=== PATIENT | female | born 1955 | race Caucasian/White ===

== ENCOUNTER → 2017-08-02 | Day surgery (SDC) | payer OTHER ==
[~2017-08-02] VITALS: Ht 152.4 cm; Wt 56.9 kg
[~2017-08-02] MED LIST: ATROPINE SULFATE 1% OPHT SOLN 2 ML BTL ONE; BALANCED SALT SOLN OPHT IRRIG 15 ML BTL ONE; CHLORHEXIDINE GLUCONATE 2 % 1 PACK (2 CLOTHS) TOPICAL PRN; DEXAMETHASONE SOD PHOS 4 MG/ML VIAL ONE; DO NOT ADM ANY ANTICOAGULANT DRUGS PRN; EPINEPHrine HCL (1:1000) 1 MG/ML VIAL ONE; LACTATED RINGER'S 1000 ML IV PRN; LIPI10TA PO; METOPROLOL TARTRATE 25 MG TAB PO PRN; POVIDONE IODINE 5% (ANTISEPSIS KIT) 4 APPLICATIONS EACH NARE PRN; SODIUM CHLORID 0.9% 500 ML IV PRN; TOBRAMYCIN/DEXAMETHASONE OPTH OINT 3.5 GM TUBE ONE; ceFAZolin INJ 1,000 MG VIAL ONE
[2017-08-02] MEDS: CYCLOPENTOLATE HCL 1% OPHT SOLN 2 ML BTL RIGHT EYE SCH ×4 (12:45→13:28)
[2017-08-02] MEDS: ATROPINE SULFATE 1% OPHT SOLN 5 ML BTL RIGHT EYE SCH ×4 (12:45→13:29)
[2017-08-02] MEDS: PHENYLEPHRINE HCL 2.5% OPTH SOLN 2 ML BTL RIGHT EYE SCH ×4 (12:45→13:30)
[2017-08-02] MEDS: TROPICAMIDE 1% OPHT SOLN 15 ML BTL RIGHT EYE SCH ×4 (12:45→13:31)
[2017-08-02 12:50] LABS: AUTOMATED NEUTROPHIL # 3.3 TH/MM3 (1.8-7.7); BASOPHIL # 0.1 TH/MM3 (0-0.2); BASOPHIL % 1.1 % (0.0-2.0); EOSINOPHIL # 0.3 TH/MM3 (0-0.4); EOSINOPHIL % 5.5 % (0.0-4.0); HEMATOCRIT 36.2 % (35.0-46.0); HEMOGLOBIN 12.7 GM/DL (11.6-15.3); LYMPH % 29.3 % (9.0-44.0); LYMPHOCYTE # 1.7 TH/MM3 (1.0-4.8); MEAN CORPUSCULAR HEMOGLOBIN 29.4 PG (27.0-34.0); MEAN PLATELET VOLUME 8.3 FL (7.0-11.0); MONO % 6.7 % (0.0-8.0); MONOCYTE # 0.4 TH/MM3 (0-0.9); NEUT % 57.4 % (16.0-70.0); PLATELET COUNT 232 TH/MM3 (150-450); RED BLOOD COUNT 4.31 MIL/MM3 (4.00-5.30); RED CELL DISTRIBUTION WIDTH 13.6 % (11.6-17.2); WHITE BLOOD COUNT 5.7 TH/MM3 (4.0-11.0)
--- NOTE | 2017-08-02 13:41 | EKG ---
Date Performed: 08/02/2017 Time Performed: 11:57:31 PTAGE: 62 years EKG: Sinus rhythm NORMAL ECG NO PREVIOUS TRACING DOCTOR: Jayant Daniels Interpretating Date/Time 08/02/2017 13:16:29
--- NOTE | 2017-08-02 18:03 | MP ---
cc: Jayne Pacheco MD DATE OF OPERATION: 08/02/2017 DATE OF PROCEDURE: 08/02/2017 PREOPERATIVE DIAGNOSIS: Epiretinal membrane with macular pucker, right eye. POSTOPERATIVE DIAGNOSIS: Epiretinal membrane with macular pucker, right eye. PROCEDURE PERFORMED: Trans pars plana vitrectomy with ICG guided membranectomy and air fluid exchange, right eye. SURGEON: Jayne Pacheco MD ANESTHESIA: Laryngeal mask anesthesia. INDICATION FOR PROCEDURE: Ms. Pires is a 62-year-old woman with a history of rhegmatogenous retinal detachment repaired elsewhere with a scleral buckle procedure and vitrectomy. She presents to or with an epiretinal membrane causing macular pucker with distortion in her right eye, and wishes electively to proceed with a vitrectomy membrane peel. The risks and benefits of surgery including infection and possible redetachment were discussed with the patient. No guarantee was made as to visual outcome and informed consent was obtained. DESCRIPTION OF PROCEDURE: She was brought to [facility] operating room 1 on the [facility]. Appropriate anesthesia monitoring devices were applied and she was placed under general anesthesia using a laryngeal mask. The right eye was identified as the operative site and prepped and draped in the usual sterile fashion. A lid speculum was placed. At this a time, an appropriate timeout was called with the surgical team agreeing to the procedure and the surgical site. Using the Arash 23 gauge vitrectomy system, the trocar cannulas were placed, 3.5 mm posterior to the limbus after first displacing the conjunctiva. The first one was placed at approximately 8:45 o'clock and verified to be in the posterior chamber. An infusion cannula was affixed to it and turned on. Two additional trocar cannulas were placed at 10 and 2 o'clock. Using the flat contact lens for visualization, ICG was allowed to settle on the macular surface and then the eye was then entered with the endoilluminator light pipe and the Leo membrane scraper. The membrane was scraped from the superior temporal aspect of the macula down and then nasally and was then suctioned off the retinal surface with a soft tipped linear extrusion needle. The fundus was inspected with the indirect ophthalmoscope and no retinal breaks were found. The retina was still attached 360 degrees on the buckle. A near total air fluid exchange was performed with a soft tipped linear extrusion needle, after which the trocar cannulas were removed 1 by 1 with diathermy to the overlying conjunctival wound. Atropine drops were placed on the cornea. Subconjunctival injections of Ancef 125 mg in 0.5 mL and Decadron 2 mg in 0.5 mL were given at separate sites. The lid speculum was removed and the patient was undraped. TobraDex ointment were placed on the cornea and then the right eye was patched and shielded. The patient had the laryngeal mask removed in the room and was returned to recovery in good condition, lying on her left side. She will be seen in the morning. MD SITA Luevano/ARCENIO , 05:29 PM , 06:01 PM
[2017-08-02 18:44] VITALS: BP 131/62; PULSE 88; RESP 18; TEMP 98.6; O2SAT 98
== END | disposition home or self-care (01) ==
LOC: HSDC 11:11
PROVIDERS: ATTEND Ophthalmology
DX: H35.371 Puckering of macula, right eye (principal); Z01.810 Encounter for preprocedural cardiovascular examination
CPT/HCPCS: 00145; 67041; 85025; 93005; J0171; J0690; J1100; J3010; J7120